=== PATIENT | male | born 1960 | race Caucasian/White ===

== ENCOUNTER → 2025-03-25 | Outpatient (CLI) | payer SELFPAY ==
[2025-03-25 13:07] VITALS: BP 159/81; PULSE 58; RESP 16; TEMP 36.6; O2SAT 100; BMI 36.8
[2025-03-25 13:18] VITALS: BP 159/81; PULSE 54
[2025-03-25] MEDS: Nitroglycerin SL (ED/IMG/CATH) 0.4 MG TABLET SL (13:18)
[2025-03-25 13:28] VITALS: BP 142/67; PULSE 56; RESP 16; O2SAT 97
== END | disposition home or self-care (01) ==
LOC: CT 12:12
PROVIDERS: PCP Family Medicine; Referring Provider Internal Medicine Cardiovascular Disease; Visit Provider Internal Medicine Cardiovascular Disease
DX: R06.02 Shortness of breath (principal); R53.83 Other fatigue; R42 Dizziness and giddiness; R94.39 Abnormal result of other cardiovascular function study
CPT/HCPCS: 75574; 93306; C8929